=== PATIENT | male | born 1945 | race Caucasian/White ===

== ENCOUNTER 2020-02-16 17:29 | Observation (INO) ==
[2020-02-16] MEDS ORDERED: Ondansetron 4 MG/2 ML VIAL IVP PRN (18:33)
[2020-02-16] MEDS ORDERED: Naloxone 0.4 MG/ML INJ IVP PRN (18:33)
[2020-02-16] MEDS ORDERED: Dextrose Gel 15 GM/37.5 ML TUBE PO PRN ×2 (18:39)
[2020-02-16] MEDS ORDERED: D5% in Water 1,000 ML IVC PRN (18:39)
[2020-02-16] MEDS ORDERED: *HR* Dextrose 50 % in Water (Vial) 50 ML VIAL IVP PRN (18:39)
[2020-02-16] MEDS ORDERED: 0.9 % Sodium Chloride 1,000 ML IVC SCH (18:45)
[2020-02-16] MEDS: Insulin LISPRO 300 UNITS/3 ML VIAL SQ SCH (19:19)
[2020-02-16] MEDS ORDERED: Insulin LISPRO 300 UNITS/3 ML VIAL SQ SCH (21:00)
[2020-02-16] MEDS ORDERED: traZODone 50 MG TABLET PO SCH (21:00)
[2020-02-16] MEDS ORDERED: Insulin DETEMIR 100 UNIT/ML X5UNITS SQ SCH (21:00)
[2020-02-16] MEDS: *HR* Heparin 5,000 UNIT/ML VIAL SQ SCH (21:22)
[2020-02-16] MEDS: hydroCHLOROthiazide 25 MG TABLET PO SCH (21:56)
[2020-02-16 22:52] LABS: Calcium 9.2 mg/dL (8.6-10.3); Magnesium 2.3 mg/dL (1.6-2.6); Potassium 2.8 mEq/L (3.5-5.1)
[2020-02-16] MEDS: KETOTIFEN FUMARATE OP SCH (23:21)
[2020-02-17 02:15] LABS: Basophils % 0.4 %; Eosinophils # 0.2 K/mcL (0.0-0.6); Hematocrit 44.6 % (37.5-50.1); Hemoglobin 15.8 g/dL (12.9-16.9); Immature Granulocytes % 0.3 % (0-4); Lymphocytes # 1.3 K/mcL (0.6-4.6); Lymphocytes % 14.1 %; Mean Corpuscular HGB Conc 35.4 g/dL (31.6-35.5); Mean Corpuscular Hemoglobin 33.4 pg (28.0-33.3); Mean Corpuscular Volume 94.3 fL (83.0-100.0); Mean Platelet Volume 10.6 fL (9.4-12.4); Monocytes # 0.8 K/mcL (0.0-1.3); Monocytes % 9.1 %; Neutrophils # 6.8 K/mcL (1.6-8.9); Platelet Count 194 K/mcL (140-400); Red Blood Count 4.73 M/mcL (4.19-5.50); Red Cell Distribution Width 11.5 % (11.5-14.5); Segmented Neutrophils % 74.1 %; White Blood Count 9.2 K/mcL (4.3-11.1)
[2020-02-17 02:33] LABS: Calcium 9.3 mg/dL (8.6-10.3); Magnesium 2.3 mg/dL (1.6-2.6); Potassium 2.7 mEq/L (3.5-5.1)
[2020-02-17] MEDS: *HR* Heparin 5,000 UNIT/ML VIAL SQ SCH (05:25)
[2020-02-17] MEDS ORDERED: Potassium Chloride 40 MEQ, Lidocaine 1% 2 ML in 0.9 % Sodium Chloride 500 ML IVPB ONE (07:23)
[2020-02-17] MEDS ORDERED: Potassium Chloride Elixir 20 MEQ/15 ML UDC PO ONE (07:23)
[2020-02-17] MEDS: hydroCHLOROthiazide 25 MG TABLET PO SCH (08:57)
[2020-02-17] MEDS: Insulin LISPRO 300 UNITS/3 ML VIAL SQ SCH ×2 (08:58→11:52)
[2020-02-17] MEDS: KETOTIFEN FUMARATE OP SCH (08:59)
[2020-02-17] MEDS ORDERED: Aspirin Enteric Coated 81 MG Tablet PO SCH (09:00)
[2020-02-17] MEDS ORDERED: Finasteride 5 MG TABLET PO SCH (09:00)
[2020-02-17] MEDS ORDERED: Multivit/Ca/Min/Fe/FA 1 TAB TABLET PO SCH (09:00)
[2020-02-17] MEDS ORDERED: amLODIPine 5 MG TABLET PO SCH (09:00)
[2020-02-17 11:15] VITALS: BP 113/72
== END 2020-02-17 13:05 | disposition home or self-care (01) ==
LOC: 2ANU 17:29 → EMEROOARM 17:29 → SUATTDRO 18:40 → 2ANU 19:48
PROVIDERS: ADMIT Internal Medicine; ATTEND Internal Medicine